=== PATIENT | female | born 1970 | race Caucasian/White ===

== ENCOUNTER 2018-04-15 12:33 | Inpatient (IN) | payer MEDICAID, OTHER ==
[~2018-04-15] VITALS: Ht 157.5 cm; Wt 49.9 kg
[~2018-04-15 12:33] MED LIST: ALBU25PO2; AMOX125S8; DEXT15SY3; SIMV20TA2
[2018-04-15] MEDS ORDERED: IPRATROPIUM BROMIDE (0.02%) 0.5MG/2.5ML NEB HHN STA (13:38)
[2018-04-15] MEDS ORDERED: SODIUM CHLORIDE 0.9% 500 ML IV ONE (13:45)
[2018-04-15 14:18] LABS: BASOPHILS % 0.5 % (0.0-2.0); EOSINOPHILS % 0.2 % (0.0-5.0); HEMATOCRIT. 37.6 % (36.0-48.0); HEMOGLOBIN. 12.5 g/dL (12.0-16.0); LYMPHOCYTES % 30.4 % (20.0-50.0); MEAN CORPUSCULAR HEMOGLOBIN 33.6 pg (28.0-32.0); MEAN CORPUSCULAR VOLUME 100.8 fL (81.0-99.0); MEAN PLATELET VOLUME 8.8 fl (7.4-10.4); MONOCYTES % 6.3 % (2.0-8.0); NEUTROPHILS % 62.6 % (40.0-76.0); PLATELET 251 x1000/uL (130-400); RED BLOOD CELL COUNT 3.73 mill/uL (4.2-5.4); RED CELL DISTRIBUTION WIDTH 14.2 % (11.6-14.6)
[2018-04-15 14:26] LABS: CHLORIDE 108 mEq/L (98-107)
[2018-04-15] MEDS: ALBUTEROL (0.083%) 2.5MG/3ML NEB HHN SCH ×2 (14:44→15:12)
[2018-04-15] MEDS ORDERED: MORPHINE SULFATE 4 MG/ML CPJ (NOT FOR IM USE) IV NR (16:45)
[2018-04-15] MEDS ORDERED: POTASSIUM CHLORIDE 20MEQ TABLET SR PO NR ×2 (16:45)
[2018-04-15] MEDS ORDERED: ONDANSETRON HCL 4MG/2ML INJ IV NR (16:45)
[2018-04-15] MEDS ORDERED: METHYLPREDNISOLONE SOD SUCC 125 MG/2 ML VIAL IV ONE (17:00)
[2018-04-15] MEDS ORDERED: ALBUTEROL (0.083%) 2.5MG/3ML NEB HHN ONE (17:00)
[2018-04-15] MEDS ORDERED: IPRATROPIUM/ALBUTEROL 0.5-3(2.5)MG/3ML NEB HHN PRN (17:30)
[2018-04-15] MEDS ORDERED: ACETAMINOPHEN 325MG TABLET PO PRN (17:30)
[2018-04-15] MEDS ORDERED: GUAIFENESIN-DM 200MG-20MG/10ML UDC PO PRN (17:30)
[2018-04-15] MEDS ORDERED: ONDANSETRON HCL 4MG/2ML INJ IV PRN (17:30)
[2018-04-15] MEDS ORDERED: BUDESONIDE 0.5MG/2ML NEB HHN SCH (17:30)
[2018-04-15 19:09] LABS: METHADONE URINE SCREEN NEGATIVE (NEGATIVE); OPIATES URINE SCREEN NEGATIVE (NEGATIVE)
[2018-04-15 19:10] LABS: *AMPHETAMINES SCREEN URINE NEGATIVE (NEGATIVE); *BARBITURATES SCREEN URINE NEGATIVE (NEGATIVE); *BENZODIAZEPINES SCREEN URINE NEGATIVE (NEGATIVE); *COCAINE SCREEN URINE NEGATIVE (NEGATIVE); PHENCYCLIDINE URINE SCREEN NEGATIVE (NEGATIVE)
[2018-04-15 19:11] LABS: CANNABINOID URINE SCREEN PRESUMTIVE POSITIVE (NEGATIVE)
[2018-04-15 21:00] VITALS: BP 124/60
[2018-04-15 22:00] VITALS: BP 124/60
[2018-04-15] MEDS: KETOROLAC 30MG/ML VIAL IV PRN (22:12)
[2018-04-15] MEDS ORDERED: ALBU2.5V13 IH (22:34)
[2018-04-16] VITALS: BP 101/54
[2018-04-16 04:00] VITALS: BP 113/60
[2018-04-16 06:50] LABS: BASOPHILS % 0.2 % (0.0-2.0); HEMATOCRIT. 35.6 % (36.0-48.0); HEMOGLOBIN. 11.9 g/dL (12.0-16.0); LYMPHOCYTES % 20.4 % (20.0-50.0); MEAN CORPUSCULAR HEMOGLOBIN 34.1 pg (28.0-32.0); MEAN CORPUSCULAR VOLUME 102.1 fL (81.0-99.0); MEAN PLATELET VOLUME 9.1 fl (7.4-10.4); MONOCYTES % 7.5 % (2.0-8.0); NEUTROPHILS % 71.9 % (40.0-76.0); PLATELET 238 x1000/uL (130-400); RED BLOOD CELL COUNT 3.49 mill/uL (4.2-5.4); RED CELL DISTRIBUTION WIDTH 14.5 % (11.6-14.6)
[2018-04-16 07:23] LABS: CHLORIDE 109 mEq/L (98-107)
[2018-04-16 08:00] VITALS: BP 115/62
[2018-04-16] MEDS: KETOROLAC 30MG/ML VIAL IV PRN ×2 (09:30→16:05)
[2018-04-16] MEDS: DIPHENHYDRAMINE 25MG CAPSULE PO PRN ×2 (10:18→17:41)
[2018-04-16 12:00] VITALS: BP 118/52
[2018-04-16 16:00] VITALS: BP 109/59
[2018-04-16] MEDS ORDERED: IPRATROPIUM/ALBUTEROL 0.5-3(2.5)MG/3ML NEB HHN PRN (18:15)
[2018-04-16] MEDS ORDERED: BENZONATATE 100MG CAPSULE PO PRN (18:15)
[2018-04-16] MEDS: MONTELUKAST SODIUM 10MG TABLET PO SCH (19:03)
[2018-04-16] MEDS: METHYLPREDNISOLONE SOD SUCC 40 MG/ML VIAL IV SCH (19:03)
[2018-04-16 20:00] VITALS: BP 121/71
[2018-04-16] MEDS: IPRATROPIUM/ALBUTEROL 0.5-3(2.5)MG/3ML NEB HHN SCH (21:57)
[2018-04-16] MEDS: FAMOTIDINE 20MG TABLET PO SCH (23:47)
[2018-04-17] MEDS: IPRATROPIUM/ALBUTEROL 0.5-3(2.5)MG/3ML NEB HHN SCH ×5 (00:07→14:39)
[2018-04-17 00:25] VITALS: BP 107/64
[2018-04-17] MEDS: METHYLPREDNISOLONE SOD SUCC 40 MG/ML VIAL IV SCH ×2 (01:53→09:59)
[2018-04-17 04:00] VITALS: BP 122/56
[2018-04-17 06:49] LABS: HEMATOCRIT. 38.6 % (36.0-48.0); HEMOGLOBIN. 12.7 g/dL (12.0-16.0); MEAN CORPUSCULAR HEMOGLOBIN 33.6 pg (28.0-32.0); MEAN CORPUSCULAR VOLUME 102.1 fL (81.0-99.0); MEAN PLATELET VOLUME 9.2 fl (7.4-10.4); PLATELET 274 x1000/uL (130-400); RED BLOOD CELL COUNT 3.78 mill/uL (4.2-5.4); RED CELL DISTRIBUTION WIDTH 14.6 % (11.6-14.6)
[2018-04-17 06:56] LABS: CHLORIDE 108 mEq/L (98-107)
[2018-04-17 08:00] VITALS: BP 120/55
[2018-04-17] MEDS ORDERED: LORATADINE 10MG TABLET PO SCH (09:00)
[2018-04-17] MEDS: FAMOTIDINE 20MG TABLET PO SCH (09:59)
[2018-04-17 12:00] VITALS: BP 118/59
[2018-04-17] MEDS ORDERED: PRED10TA23 MT (13:26)
[2018-04-17] MEDS ORDERED: MONT10TA21 PO (13:26)
[2018-04-17] MEDS ORDERED: P20 MT (13:26)
[2018-04-17] MEDS ORDERED: GUAI600T44 PO (13:26)
[2018-04-17] MEDS ORDERED: PRED10TA MT (13:26)
[2018-04-17] MEDS ORDERED: FAMO20TA8 PO (13:26)
[2018-04-17 14:03] LABS: PLATELET ESTIMATE NORMAL
[2018-04-17] MEDS: MONTELUKAST SODIUM 10MG TABLET PO SCH (17:00)
[2018-04-17] MEDS ORDERED: PREDNISONE 20MG TABLET PO SCH (17:00)
[2018-04-17] MEDS ORDERED: GUAIFENESIN 600MG ER TABLET PO SCH (21:00)
== END 2018-04-17 17:05 | disposition home or self-care (01) | DRG 133 ==
LOC: ER 12:33 → 7WST 17:03 → EDBEDREQ 17:05 → ENRESERV 19:32
PROVIDERS: ADMIT Internal Medicine; ATTEND Internal Medicine
PROC: 5A09357 Assistance with Respiratory Ventilation, Less than 24 Consecutive Hours, Continuous Positive Airway Pressure (ICD-10-PCS; principal; 2018-04-15)
PROC: 5A09357 Assistance with Respiratory Ventilation, Less than 24 Consecutive Hours, Continuous Positive Airway Pressure (ICD-10-PCS; 2018-04-16)
PROC: 5A09357 Assistance with Respiratory Ventilation, Less than 24 Consecutive Hours, Continuous Positive Airway Pressure (ICD-10-PCS; 2018-04-17)
DX: J96.00 Acute respiratory failure, unspecified whether with hypoxia or hypercapnia (principal); E87.8 Other disorders of electrolyte and fluid balance, not elsewhere classified; J45.901 Unspecified asthma with (acute) exacerbation; E87.6 Hypokalemia; E78.5 Hyperlipidemia, unspecified; D64.9 Anemia, unspecified; F12.90 Cannabis use, unspecified, uncomplicated; I10 Essential (primary) hypertension; Z79.2 Long term (current) use of antibiotics; Z79.899 Other long term (current) drug therapy
CPT/HCPCS: 36415; 71045; 80048; 80305; 83036; 83880; 84132; 84484; 87804; 93005; 94640; 94660; 96360; 99291; J1885; J2270; J2405; J2920; J2930; J7040; J7611; J7620; J7626; Q0163